=== PATIENT | female | born 1945 | race Caucasian/White ===

== ENCOUNTER 2016-12-05 12:45 | Observation (INO) ==
[2016-12-05] MEDS ORDERED: Aspirin 81 MG TAB.CHEW PO ONE (12:47)
--- NOTE | 2016-12-05 12:50 | Emergency Department Note ---
Disposition Clinical Impression: Chest pain Qualifiers: Chest pain type: unspecified Qualified Code(s): R07.9 - Chest pain, unspecified Disposition: Admitted As Inpatient Condition: Good Referrals: NO,PCP [Primary Care Provider] - Forms: Work/School Release, ED Satisfaction Letter Time of Disposition: 13:53 General Adult HPI - General Chief complaint: ED General Medical Stated complaint: something is wrong Time Seen by Provider: 12/05/16 12:47 Source: patient Mode of arrival: ambulatory Limitations: no limitations Nursing Notes Reviewed: Yes Vital Signs Reviewed: Yes - History of Present Illness HPI Narrative: 71-year-old who states she doesn't feel right. States she's been having intermittent chest pain for the last day or so. Onset (ago): day(s) Location: chest Radiation: non-radiation Pain Severity: moderate Quality: aching Consistency: constant Improves with: nothing Worsens with: nothing Treatments Prior to Arrival: none - Related Data Previous Rx's Medication Instructions Recorded Azithromycin [Azithromycin 6-Tab 250 mg PO PER PKG DI #6 tab 07/19/16 Pack] Allergies Allergy/AdvReac Type Severity Reaction Status Date / Time Penicillins Allergy See Verified 09/13/15 11:57 Comments Limitations: ROS unobtainable due to patients medical condition Constitutional: Denies: fever, chills, weakness, weight change Eyes: Denies: eye pain, eye discharge, vision change ENT ED: Denies: ear pain, throat pain, dental pain, hearing loss, epistaxis, congestion, dysphagia Cardiovascular: Reports: chest pain. Denies: palpitations, dyspnea on exertion , edema, syncope Respiratory: Denies: cough, dyspnea, wheezes, hemoptysis, stridor Gastrointestinal: Denies: abdominal pain, nausea, vomiting, diarrhea, constipation, hematemesis, melena, hematochezia Genitourinary: Denies: dysuria, frequency, hematuria, discharge Musculoskeletal: Denies: back pain, neck pain, arthralgia, myalgia Integumentary: Denies: rash, abrasion, lesions Neurological: Denies: headache, weakness, numbness, paresthesias, confusion, abnormal gait, vertigo Psychiatric: Denies: anxiety, depression, suicidal thoughts, homicidal thoughts , auditory hallucinations, visual hallucinations Endocrine: Denies: fatigue Hematological/Lymphatic: Denies: easy bleeding, easy bruising Allergic/Immunologic: Denies: facial swelling, urticaria Past Medical History - Past Medical History Medical history: Reports: no medical history Surgical history: Reports: appendectomy Psychiatric history: Reports: depression - Social History Smoking Status: Current every day smoker Smokeless Tobacco Status: No Alcohol use: Reports: none Drug use: Reports: none Physical Exam - General Limitations: no limitations - Head Head exam: atraumatic, normocephalic, normal inspection - Eye Eye exam: Present: normal appearance, PERRL, EOMI - ENT ENT exam: normal exam, normal oropharynx, mucous membranes moist - Neck Neck exam: Present: normal inspection, full ROM, trachea midline - Chest Chest inspection: Present: normal inspection, symmetric chest wall rise - Respiratory Respiratory exam: Present: normal lung sounds bilaterally - Cardiovascular Cardiovascular exam: Present: regular rate, normal rhythm, normal heart sounds - Abdominal Exam Abdominal exam: Present: soft, Non-Tender. Absent: tenderness, distention, guarding, rebound, rigidity - Extremities Exam Extremities exam: Present: normal inspection, full ROM. Absent: tenderness, pedal edema - Expanded Lower Extremity Exam Neurovascular/Tendon exam: Absent: motor deficit, sensory deficit, tendon deficit Gait: observed and normal - Back Exam Back exam: Present: normal inspection, full ROM. Absent: tenderness - Neurological Exam Neurological exam: Present: alert, oriented X3 - Psychiatric Psychiatric exam: Present: normal affect - Skin Skin exam: Present: warm, dry, intact, normal color Course - Reevaluation(s) Reevaluation #1: 71-year-old who states hasn't felt well for the last couple of days been having some intermittent chest pain today. Patient has had no recent workup. Will be admitted. Time: 13:55 - Consultations Consultation #1: Discussed with , admit. Time: 13:54 Vital Signs Temperature 98.7 F 12/05/16 12:46 Pulse Rate 71 12/05/16 12:46 Respiratory Rate 18 12/05/16 12:46 Blood Pressure 171/73 12/05/16 12:46 O2 Sat by Pulse Oximetry 71 12/05/16 12:46 Temperature 98.7 F 12/05/16 12:46 Pulse Rate 62 12/05/16 14:02 Respiratory Rate 18 12/05/16 14:02 Blood Pressure 138/82 12/05/16 14:02 O2 Sat by Pulse Oximetry 98 12/05/16 14:02 Oxygen Delivery Oxygen Delivery Room Air Medical Decision Making - Lab Data Lab results reviewed: Yes I reviewed the patient's lab results. Result diagrams: 12/05/16 13:09 12/05/16 13:09 Lab Results 12/05/16 12/05/16 12/05/16 Range/Units 13:09 13:09 13:09 WBC 5.5 (4.3-11.1) K/mcL RBC 4.50 (3.82-4.97) M/mcL Hgb 13.6 (11.5-15.4) g/dL Hct 41.3 (35.3-44.9) % MCV 91.8 (83.0-100.0) fL MCH 30.2 (28.0-33.3) pg MCHC 32.9 (31.6-35.5) g/dL RDW 14.1 (11.5-14.5) % Plt Count 263 (140-400) K/mcL MPV 10.0 (9.4-12.4) fL Immature Gran % 0.5 (0-4) % Seg Neutrophils % 63.1 % Lymphocytes % 25.2 % Monocytes % 7.9 % Eosinophils % 2.2 % Basophils % 1.1 % Neutrophils # 3.5 (1.6-8.9) K/mcL Lymphocytes # 1.4 (0.6-4.6) K/mcL Monocytes # 0.4 (0.0-1.3) K/mcL Eosinophils # 0.1 (0.0-0.6) K/mcL Basophils # 0.1 (0.0-0.2) K/mcL PT 11.4 (9.4-12.1) Seconds INR 1.1 APTT 28.8 (26.0-36.0) Seconds Sodium (136-145) mEq/L Potassium (3.5-4.5) mEq/L Chloride (98-109) mEq/L Carbon Dioxide (19-29) mEq/L BUN (7-20) mg/dL Creatinine (0.57-1.11) mg/dL Est GFR ( Amer) (> 60) Est GFR (Non-Af Amer) (> 60) BUN/Creatinine Ratio (6-26) Glucose (70-99) mg/dL Calculated Osmolality (280-300) Calcium (8.6-10.8) mg/dL Troponin I (0-0.03) ng/mL B-Natriuretic Peptide 111 H (0-100) pg/mL 12/05/16 12/05/16 Range/Units 13:09 13:09 WBC (4.3-11.1) K/mcL RBC (3.82-4.97) M/mcL Hgb (11.5-15.4) g/dL Hct (35.3-44.9) % MCV (83.0-100.0) fL MCH (28.0-33.3) pg MCHC (31.6-35.5) g/dL RDW (11.5-14.5) % Plt Count (140-400) K/mcL MPV (9.4-12.4) fL Immature Gran % (0-4) % Seg Neutrophils % % Lymphocytes % % Monocytes % % Eosinophils % % Basophils % % Neutrophils # (1.6-8.9) K/mcL Lymphocytes # (0.6-4.6) K/mcL Monocytes # (0.0-1.3) K/mcL Eosinophils # (0.0-0.6) K/mcL Basophils # (0.0-0.2) K/mcL PT (9.4-12.1) Seconds INR APTT (26.0-36.0) Seconds Sodium 140 (136-145) mEq/L Potassium 3.9 (3.5-4.5) mEq/L Chloride 109 (98-109) mEq/L Carbon Dioxide 21 (19-29) mEq/L BUN 18 (7-20) mg/dL Creatinine 0.79 (0.57-1.11) mg/dL Est GFR ( Amer) > 60 (> 60) Est GFR (Non-Af Amer) > 60 (> 60) BUN/Creatinine Ratio 23 (6-26) Glucose 93 (70-99) mg/dL Calculated Osmolality 292 (280-300) Calcium 8.9 (8.6-10.8) mg/dL Troponin I 0.00 (0-0.03) ng/mL B-Natriuretic Peptide (0-100) pg/mL - Radiology Data Radiology results reviewed: Yes I reviewed the patient's radiology results. Chest X-Ray 12/05/16 12:47 IMPRESSION: Stable portable study. D/ / Nellie Jiménez Cha, MD / Nellie Jiménez Cha, MD Interpreting Provider: Nellie Jiménez Cha, MD
[2016-12-05 13:18] LABS: Basophils # 0.1 K/mcL (0.0-0.2); Basophils % 1.1 %; Eosinophils # 0.1 K/mcL (0.0-0.6); Eosinophils % 2.2 %; Hematocrit 41.3 % (35.3-44.9); Hemoglobin 13.6 g/dL (11.5-15.4); Immature Granulocytes % 0.5 % (0-4); Lymphocytes # 1.4 K/mcL (0.6-4.6); Lymphocytes % 25.2 %; Mean Corpuscular HGB Conc 32.9 g/dL (31.6-35.5); Mean Corpuscular Hemoglobin 30.2 pg (28.0-33.3); Mean Corpuscular Volume 91.8 fL (83.0-100.0); Monocytes # 0.4 K/mcL (0.0-1.3); Monocytes % 7.9 %; Neutrophils # 3.5 K/mcL (1.6-8.9); Platelet Count 263 K/mcL (140-400); Red Cell Distribution Width 14.1 % (11.5-14.5); Segmented Neutrophils % 63.1 %
[2016-12-05 13:25] LABS: INR 1.1; Prothrombin Time 11.4 Seconds (9.4-12.1)
[2016-12-05 13:28] LABS: Activated Partial Thrombo Time 28.8 Seconds (26.0-36.0)
[2016-12-05 13:31] LABS: BUN/Creatinine Ratio 23 (6-26); Blood Urea Nitrogen 18 mg/dL (7-20); Calcium 8.9 mg/dL (8.6-10.8); Carbon Dioxide 21 mEq/L (19-29); Chloride 109 mEq/L (98-109); Glucose 93 mg/dL (70-99); Osmolality,Calculated 292 (280-300); Potassium 3.9 mEq/L (3.5-4.5); Sodium 140 mEq/L (136-145); eGFR For African Americans > 60 (> 60); eGFR For Non-African Americans > 60 (> 60)
[2016-12-05] MEDS ORDERED: Naloxone 0.4 MG/ML INJ IVP PRN (15:10)
[2016-12-05] MEDS ORDERED: Acetaminophen 325 MG TABLET PO PRN (15:10)
[2016-12-05] MEDS ORDERED: Ondansetron 4 MG/2 ML VIAL IVP PRN (15:10)
[2016-12-05] MEDS ORDERED: *HR* HYDROcodone/Acet 5/325 mg TABLET PO PRN (15:10)
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
[2016-12-05] MEDS: Nitroglycerin 0.4 MG TAB.SUBL SL PRN ×2 (16:24→20:58)
[2016-12-06 01:15] LABS: Basophils % 0.7 %; Eosinophils # 0.2 K/mcL (0.0-0.6); Eosinophils % 3.3 %; Hematocrit 38.3 % (35.3-44.9); Hemoglobin 12.4 g/dL (11.5-15.4); Immature Granulocytes % 0.3 % (0-4); Lymphocytes # 1.5 K/mcL (0.6-4.6); Lymphocytes % 26.7 %; Mean Corpuscular HGB Conc 32.4 g/dL (31.6-35.5); Mean Corpuscular Volume 92.5 fL (83.0-100.0); Mean Platelet Volume 10.2 fL (9.4-12.4); Monocytes # 0.5 K/mcL (0.0-1.3); Monocytes % 8.7 %; Neutrophils # 3.5 K/mcL (1.6-8.9); Platelet Count 248 K/mcL (140-400); Red Blood Count 4.14 M/mcL (3.82-4.97); Red Cell Distribution Width 14.1 % (11.5-14.5); Segmented Neutrophils % 60.3 %
[2016-12-06 01:24] LABS: BUN/Creatinine Ratio 14 (6-26); Blood Urea Nitrogen 14 mg/dL (7-20); Calcium 8.6 mg/dL (8.6-10.8); Carbon Dioxide 23 mEq/L (19-29); Chloride 110 mEq/L (98-109); Chol/HDL Ratio 4.6 (0-4.9); Cholesterol 221 mg/dL (< 200); Glucose 96 mg/dL (70-99); HDL Cholesterol 48 mg/dL (40-59); LDL Cholesterol,Calculated 140 mg/dL (0-99); Magnesium 2.2 mg/dL (1.6-2.6); Osmolality,Calculated 292 (280-300); Potassium 3.7 mEq/L (3.5-4.5); Sodium 141 mEq/L (136-145); Triglycerides 163 mg/dL (< 150); eGFR For African Americans > 60 (> 60); eGFR For Non-African Americans 53 (> 60)
[2016-12-06] MEDS ORDERED: Regadenoson 0.4 MG/5 ML SYRINGE IVP ONE (07:03)
[2016-12-06] MEDS ORDERED: Aspirin 81 MG TAB.CHEW PO SCH (09:00)
--- NOTE | 2016-12-06 11:39 | Nuclear Medicine Stress Report ---
Regadenoson Nuclear Stress Name: Trina Alas Date of Study: 12/06/2016 Date: 1945 Ht: 64.0 in Medical Record#: [id number] Age: 71 Wt: 136.0 lb Gender: Female Order #: [id number] Location: [facility] Room: [facility] Supervising Provider: Benitez Cade CNP Reading Physician: Lenny Rosenbaum MD, [facility] Ordering Physician: Leslie Smiley CNP Stress Technologist: Jamie Brunson KNITTING MACHINE TENDER, [employer] County Commissioner: Nathan Alas Indications: Chest Pain Impression: Perfusion imaging was negative for ischemia or infarct. Pharmacologic ECG was non diagnostic for ischemia. Patient had no chest pain with stress. Normal hemodynamic response. No arrhythmias noted with stress. Gated EF = >70%. There is no evidence of TID. Stress Test Summary: Stress Test Type: Pharmacologic Regadenoson 0.4mg/5ml given IV Baseline Information: Initial Heart Rate: 65 Blood Pressure: 116/74 Stress Information: Stress Time: 4 min 00 sec Test Terminated Due to (primary): Completed Protocol Maximum Blood Pressure: 114/76 Maximum Heart Rate: 86 Percent Maximum Heart Rate Achieved: 58 Double Product: 9,804 METS Reached: 1 Symptoms: Shortness of breath, Nausea Nuclear Summary: SPECT myocardial perfusion imaging using Tc99m Sestamibi given intravenously was performed at rest and following cardiac stress testing. The resting images were obtained following initial dose of 11.6 mCi. Following stress an additional dose of 33.2 mCi was given at peak exercise or 30 seconds post regadenoson infusion. Medication Given: Time Medication Dose Units Route Findings: Stress Note * Resting ECG demonstrated normal sinus rhythm. * No baseline arrhythmias were noted. * Pharmacologic stress ECG is non diagnostic for ischemia due to failure to reach target heartrate. * No arrhythmias were noted during stress. * No chest pain or arrhythmias during stress. Hemodynamic responses * Normal hemodynamic responses to pharmacologic stress. Study Quality * Study quality is average. Gated EF > 70% * Gated EF > 70%. NORMALS * Normal wall motion. * Normal Segmental Perfusion in rest. * Normal segmental perfusion in stress. TID * No evidence of transient ischemic dilatation. Updated by Lenny Rosenbaum MD, [facility] on 12/06/2016 11:31:23 AM electronically signed on 12/06/2016 11:36:19 AM with status of Final
[2016-12-06] MEDS: Nitroglycerin 0.4 MG TAB.SUBL SL PRN (11:52)
--- NOTE | 2016-12-06 14:08 | ECHO - Doppler Report ---
Echocardiogram Name: Trina Alas Date of Study: 12/06/2016 Date: 1945 Ht: 61.0 in Medical Record#: [id number] Age: 71 Wt: 136.0 lb Gender: Female BSA: 1.6 Order #: [id number] Location: [facility] Room #: 3B Reading Physician: Lenny Rosenbaum MD, [facility] Rn Perioperative: Lonny Macias RDCS Ordering Physician: Regina Sprague CNP Primary Physician: None Indications: Chest pain Impressions: LVEF 55-60%. Mild left ventricular diastolic dysfunction. No pulmonary hypertension. No significant valvular dysfunction. Left Ventricular Wall Motion: Rest Echo Findings All wall segments showed normal motion. Findings: Study Quality * Technically adequate exam. Right Ventricle * Normal right ventricular structure and function. Left Atrium * Normal left atrial size. Right Atrium * Normal right atrial size. Interatrial Septum * No evidence of PFO by color Doppler. Aorta * Normally sized aortic root. ECG Findings * Sinus bradycardia. Pericardium * There is a trivial pericardial effusion present. Left Ventricle * LVEF 55-60%. * Mild left ventricular diastolic dysfunction. Tricuspid Valve * No tricuspid stenosis. * Mild tricuspid regurgitation. * Estimated RA pressure is 3-5 mmHg. * No pulmonary hypertension. * Estimated RVSP is 19 mmHg. Pulmonic Valve * No pulmonic stenosis. * Mild pulmonic regurgitation. Aortic Valve * Normal aortic valve structure. * Trileaflet aortic valve. * Trace aortic regurgitation. * No aortic stenosis. Mitral Valve * Normal mitral valve structure. * No mitral stenosis. * Trace mitral regurgitation. IVC * Normal IVC dimensions and inspiratory collapse. History Family History of CAD 09/13/15 a Previous Echo was performed. Measurements: BP: 118/ 69 2D Normal Values RVIDd: 2.86 cm <2.7 cm IVSd: .94 cm 0.6 - 1.0 cm LVIDd: 4.74 cm 3.7 - 5.6 cm LVPWd: .91 cm 0.6 - 1.1 cm LVIDs: 2.98 cm 1.5 - 3.6 cm AO: 2.50 cm < 4.0 cm LA: 3.70 cm 2.0 - 4.0cm LA volume: 49 Mitral Valve Peak E:.57 m/sec Peak A:.67 m/sec E/A Ratio:0.9 Peak E' Lat Toño:6.09 cm/s Peak E' Med Toño:6.96 cm/s E/E' Lat Ratio:9.4 E/E' Med Ratio:8.2 Aortic Valve AI pressure Half-time: 904.00 msec Tricuspid Valve TV Regurg Peak Grad: 19.00mmHg Updated by Lenny Rosenbaum MD, [facility] on 12/06/2016 1:57:41 PM electronically signed on 12/06/2016 2:02:08 PM with status of Final Wall Motion Otto: 1=Normal, 2=Hypokinesis, 3=Akinesis, 4=Dyskinesis, 5=Aneurysmal, 6=Hyperkinetic, X=Not Visualized (Blank)=Missing
[2016-12-06 14:41] VITALS: BP 116/77
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
--- NOTE | 2016-12-06 20:27 | Electrocardiograph Report ---
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
== END 2016-12-06 16:40 | disposition home or self-care (01) ==
LOC: EMEROO 12:45 → 3BNU 12:45
PROVIDERS: ADMIT Nurse Practitioner Acute Care; ATTEND Nurse Practitioner Family

== ENCOUNTER 2018-02-28 16:54 | Observation (INO) ==
--- NOTE | 2018-02-28 17:20 | Emergency Department Note ---
Disposition Clinical Impression: Abdominal pain Disposition: Still a Patient Condition: Fair Referrals: NONE,PCP [Primary Care Provider] - Forms: ED Satisfaction Letter, Work/School Release Abdominal Pain HPI - General Chief Complaint: ED Abdominal Pain Stated Complaint: pain all over Time Seen by Provider: 02/28/18 16:57 Source: patient, EMS Mode of arrival: EMS Limitations: no limitations Nursing Notes Reviewed: Yes Vital Signs Reviewed: Yes - History of Present Illness HPI Narrative: Patient is a 72-year-old female with past medical history of "abdominal tumors ", MRDD. She is a poor historian. She presents today via EMS due to concern for "pain from neck down. She states that she has been having sharp stabbing pain in all of her muscles from neck down. Denies any overt chest pain but does admit to some mild dyspnea. Denies any fevers, productive cough. She also admits to lower abdominal discomfort. She states that she was diagnosed with tumors of the lower abdomen before but is unable to give me any additional details. She states that she is having worsening lower abdominal discomfort. Denies any dysuria, hematuria, blood in stool. Denies any vaginal bleeding or discharge. States that she is currently homeless. Her is in [place] currently and she has been living in a tent for the past week in the [facility]. She does not have any local family. Pain Scale: 8 - Related Data Home Medications Medication Instructions Recorded Confirmed Citalopram [CeleXA] 20 mg PO DAILY 12/05/16 12/05/16 Ibuprofen [Motrin] 600 mg PO TID PRN 12/05/16 12/05/16 Allergies Allergy/AdvReac Type Severity Reaction Status Date / Time Penicillins Allergy See Verified 02/28/18 17:19 Comments All systems ED: reviewed and negative except as stated. Constitutional: Denies: fever Cardiovascular: Denies: chest pain, palpitations Respiratory: Reports: dyspnea. Denies: cough, wheezes, hemoptysis, sputum production Gastrointestinal: Reports: abdominal pain, nausea. Denies: vomiting, diarrhea, constipation, hematemesis, melena, hematochezia Musculoskeletal: Denies: back pain Neurological: Denies: headache, weakness, numbness, paresthesias Abdominal Pain PMH - Past Medical History Medical history: Reports: no medical history Female Surgical History: Reports: appendectomy, herniorrhaphy Psychiatric history: Reports: depression - Social History Smoking status: Current some day smoker Alcohol use: Reports: none Drug use: Reports: none Physical Exam - General Limitations: no limitations General appearance: alert, in no apparent distress - Head Head exam: atraumatic, normocephalic, normal inspection - Eye Eye exam: Present: normal appearance, PERRL, EOMI - ENT ENT exam: normal exam, normal oropharynx, mucous membranes moist - Neck Neck exam: Present: normal inspection, full ROM, trachea midline - Chest Chest inspection: Present: normal inspection, symmetric chest wall rise - Respiratory Respiratory exam: Present: normal lung sounds bilaterally - Cardiovascular Cardiovascular exam: Present: regular rate, normal rhythm, normal heart sounds - Abdominal Exam Abdominal exam: Present: soft, tenderness ([id number] suprapubic tenderness). Absent: distention, guarding, rebound, rigidity, Suarez's sign, Rovsing's sign, tenderness at McBurney's Point - Extremities Exam Extremities exam: Present: normal inspection, full ROM. Absent: tenderness, pedal edema - Neurological Exam Neurological exam: Present: alert, oriented X3, CN II-XII intact. Absent: motor sensory deficit - Psychiatric Psychiatric exam: Present: normal affect, normal mood - Skin Skin exam: Present: warm, dry, intact, normal color Course Course Narrative: Vitals within normal limits on my exam. Physical exam shows a disheveled patient in no acute distress. Lungs were clear to auscultation, heart regular rate and rhythm. Abdominal exam shows suprapubic tenderness that is mild-to- moderate. Negative Suarez's, negative McBurney's. Due to history of "tumors "of the abdomen and increasing pain, will obtain repeat CT of the abdomen and pelvis. Also obtain chest x-ray due to dyspnea. Basic blood work drawn including troponin, we will obtain EKG. Patient given fentanyl for pain control. Social work also involved. Vital Signs Temperature 99.0 F 02/28/18 17:13 Pulse Rate 71 02/28/18 17:13 Respiratory Rate 16 02/28/18 17:13 Blood Pressure 106/74 02/28/18 17:13 O2 Sat by Pulse Oximetry 99 02/28/18 17:13 Temperature 99.0 F 02/28/18 17:13 Pulse Rate 71 02/28/18 17:13 Respiratory Rate 16 02/28/18 17:13 Blood Pressure 106/74 02/28/18 17:13 O2 Sat by Pulse Oximetry 99 02/28/18 17:13 Oxygen Delivery Oxygen Delivery Room Air Abdominal Pain - MDM Narrative Medical decision making narrative: Chest X-Ray 02/28/18 17:19 IMPRESSION: No acute process. D/ / Zachery Santiago MD / Zachery Santiago MD Interpreting Provider: Zachery Santiago MD 1843 hours: Patient will be signed out to the evening ER physician Dr. Oliver for further management disposition. - Medical Records Medical records reviewed: Yes I reviewed the patient's medical records. - Lab Data Lab results reviewed: Yes I reviewed the patient's lab results. Result diagrams: 02/28/18 17:32 Lab Results 02/28/18 02/28/18 Range/Units 17:32 18:00 WBC 4.1 L (4.3-11.1) K/mcL RBC 4.36 (3.82-4.97) M/mcL Hgb 13.4 (11.5-15.4) g/dL Hct 39.6 (35.3-44.9) % MCV 90.8 (83.0-100.0) fL MCH 30.7 (28.0-33.3) pg MCHC 33.8 (31.6-35.5) g/dL RDW 13.9 (11.5-14.5) % Plt Count 273 (140-400) K/mcL MPV 10.6 (9.4-12.4) fL Immature Gran % 0.2 (0-4) % Seg Neutrophils % 54.5 % Lymphocytes % 34.5 % Monocytes % 7.7 % Eosinophils % 2.4 % Basophils % 0.7 % Neutrophils # 2.3 (1.6-8.9) K/mcL Lymphocytes # 1.4 (0.6-4.6) K/mcL Monocytes # 0.3 (0.0-1.3) K/mcL Eosinophils # 0.1 (0.0-0.6) K/mcL Basophils # 0.0 (0.0-0.2) K/mcL Urine Color Yellow (Yellow) Urine Clarity Cloudy A (Clear) Urine pH 7.5 (5.0-8.0) pH Units Ur Specific [place] 1.016 (1.010-1.025) Urine Protein Negative (Neg-Trace) mg/dL Urine Glucose (UA) Normal (Normal) mg/dL Urine Ketones Negative (Negative) mg/dL Urine Blood Negative (Negative) Urine Nitrite Negative (Negative) Urine Bilirubin Negative (Negative) Urine Urobilinogen Normal (Normal) mg/dL Ur Leukocyte Esterase Small H (Negative) - EKG Data EKG attestation: Yes I reviewed and interpreted this EKG. EKG results narrative: 02/28/2018 18:12. Normal sinus rhythm. Rate 53. AR 156. QRS 83. QTC 423. Normal axis. No acute ST elevation or depression. T-wave inversion in V1, V2 that is unchanged from previous EKG on 11/01/2017. Attestation Statement - Attestation Attestation: This documentation is done with the assistance of Dragon dictation. Despite efforts made to ensure accuracy, there may be inaccuracies in hvac sheet metal installer or spelling and typographical errors. I examined this patient and my medical decision-making was reviewed with the Resident Physician. I agree with the documented findings, disposition and treatment plan as described except to the extent set forth below. Patient seen and evaluated by Dr. Allison and myself, I agree with his evaluation and management plan, supervise care the patient's stay. Patient resists today with pain all over she says she has a history of multiple abdominal tumors but she is a very poor historian and cannot provide much information. She says she is homeless she has been sleeping in a tent she has pain all over. Do not seen any direct abnormalities on physical exam Anshu and blood work CT the abdomen and urinalysis and reassess. We will also health and social care teacher be involved in this case. She is in agreement with plan.
[2018-02-28] MEDS ORDERED: *HR* FentaNYL (PF) 100 MCG/2 ML VIAL IVP ONE (17:33)
[2018-02-28 18:19] LABS: Bilirubin,Urine Negative (Negative); Blood,Urine Negative (Negative); Clarity,Urine Cloudy (Clear); Color,Urine Yellow (Yellow); Glucose,Urine (UA) Normal (Normal); Ketones,Urine Negative (Negative); Leukocyte Esterase,Urine Small (Negative); Nitrite,Urine Negative (Negative); PH,Urine 7.5 pH Units (5.0-8.0); Protein,Urine Negative (Neg-Trace); Specific Gravity,Urine 1.016 (1.010-1.025); Urobilinogen,Urine Normal (Normal)
[2018-02-28 18:22] LABS: Bacteria,Urine None Seen per hpf (None-Few); Hyaline Casts,Urine None Seen per lpf (None-Few); Squamous Epithelial Cell,Urine Many per lpf (None-Few)
[2018-02-28 18:22] LABS: Basophils % 0.7 %; Eosinophils # 0.1 K/mcL (0.0-0.6); Eosinophils % 2.4 %; Hematocrit 39.6 % (35.3-44.9); Hemoglobin 13.4 g/dL (11.5-15.4); Immature Granulocytes % 0.2 % (0-4); Lymphocytes # 1.4 K/mcL (0.6-4.6); Lymphocytes % 34.5 %; Mean Corpuscular HGB Conc 33.8 g/dL (31.6-35.5); Mean Corpuscular Hemoglobin 30.7 pg (28.0-33.3); Mean Corpuscular Volume 90.8 fL (83.0-100.0); Mean Platelet Volume 10.6 fL (9.4-12.4); Monocytes # 0.3 K/mcL (0.0-1.3); Monocytes % 7.7 %; Neutrophils # 2.3 K/mcL (1.6-8.9); Platelet Count 273 K/mcL (140-400); Red Blood Count 4.36 M/mcL (3.82-4.97); Red Cell Distribution Width 13.9 % (11.5-14.5); Segmented Neutrophils % 54.5 %
[2018-02-28 18:44] LABS: RBC,Urine 0-3 per hpf (0-3)
[2018-02-28 18:44] LABS: Alanine Aminotransferase 9 Units/L (7-52); Albumin 3.9 g/dL (3.5-5.7); Albumin/Globulin Ratio 1.8 (1.1-2.2); Alkaline Phosphatase 94 Units/L (34-104); Aspartate Amino Transferase 13 Units/L (13-39); BUN/Creatinine Ratio 24 (6-26); Bilirubin,Direct 0.1 mg/dL (0.0-0.2); Bilirubin,Indirect 0.7 mg/dL (0.0-1.2); Bilirubin,Total 0.8 mg/dL (0.3-1.0); Blood Urea Nitrogen 18 mg/dL (8-23); Calcium 9.4 mg/dL (8.6-10.3); Carbon Dioxide 21 mEq/L (23-29); Chloride 109 mEq/L (98-107); Creatine Kinase 106 Units/L (30-223); Globulin 2.2 g/dL (2.4-3.5); Glucose 123 mg/dL (70-105); Lipase 27 Units/L (11-82); Osmolality,Calculated 297 (280-300); Potassium 3.3 mEq/L (3.5-5.1); Sodium 142 mEq/L (136-145); Total Protein 6.1 g/dL (6.4-8.9); eGFR For Non-African Americans > 60 (> 60)
[2018-02-28] MEDS ORDERED: Potassium Chloride Elixir 20 MEQ/15 ML UDC PO ONE (21:35)
--- NOTE | 2018-02-28 21:37 | Emergency Department Note ---
Disposition Clinical Impression: Homeless Abdominal pain Qualifiers: Abdominal location: generalized Qualified Code(s): R10.84 - Generalized abdominal pain Disposition: Admitted As Inpatient Condition: Fair Referrals: NONE,PCP [Primary Care Provider] - Forms: ED Satisfaction Letter, Work/School Release Time of Disposition: 21:45 General Adult HPI - General Chief complaint: ED Abdominal Pain Stated complaint: pain all over Time Seen by Provider: 02/28/18 16:57 Source: patient, EMS Mode of arrival: EMS Limitations: no limitations Nursing Notes Reviewed: Yes Vital Signs Reviewed: Yes - History of Present Illness Pain Scale: 8 - Related Data Home Medications Medication Instructions Recorded Confirmed Citalopram [CeleXA] 20 mg PO DAILY 12/05/16 12/05/16 Ibuprofen [Motrin] 600 mg PO TID PRN 12/05/16 12/05/16 Allergies Allergy/AdvReac Type Severity Reaction Status Date / Time Penicillins Allergy See Verified 02/28/18 17:19 Comments Constitutional: Denies: fever Cardiovascular: Denies: chest pain, palpitations Respiratory: Reports: dyspnea. Denies: cough, wheezes, hemoptysis, sputum production Gastrointestinal: Reports: abdominal pain, nausea. Denies: vomiting, diarrhea, constipation, hematemesis, melena, hematochezia Musculoskeletal: Denies: back pain Neurological: Denies: headache, weakness, numbness, paresthesias Past Medical History - Past Medical History Medical history: Reports: no medical history Surgical history: Reports: appendectomy, herniorrhaphy Psychiatric history: Reports: depression - Social History Smoking Status: Current some day smoker Smokeless Tobacco Status: No Alcohol use: Reports: none Drug use: Reports: none Physical Exam - General Limitations: no limitations General appearance: alert, in no apparent distress Course - Reevaluation(s) Reevaluation #1: Received patient in signout from Dr. Vences. Briefly, this is a 72 year-old female with history of MRDD who presented with multiple complaints, including "pain all over." Mild abdominal tenderness. Patient is homeless. At the time of signout, labs/urine were looking good; CT abdomen and SW consult consult pending. CT abdomen was negative. Patient was evaluated by medical social worker. She is likely eligible for NH placement tomorrow, would need to come in for observation until then. Discussed case with hospitalist, and he has agreed to bring patient in. Time: 21:36 Vital Signs Temperature 99.0 F 02/28/18 17:13 Pulse Rate 71 02/28/18 17:13 Respiratory Rate 16 02/28/18 17:13 Blood Pressure 106/74 02/28/18 17:13 O2 Sat by Pulse Oximetry 99 02/28/18 17:13 Temperature 99.0 F 02/28/18 17:13 Pulse Rate 60 02/28/18 21:04 Respiratory Rate 16 02/28/18 21:04 Blood Pressure 140/54 02/28/18 21:04 O2 Sat by Pulse Oximetry 99 02/28/18 21:04 Oxygen Delivery Oxygen Delivery Room Air Medical Decision Making - Lab Data Result diagrams: 02/28/18 17:32 02/28/18 17:32 Lab Results 02/28/18 02/28/18 02/28/18 Range/Units 17:32 17:32 18:00 WBC 4.1 L (4.3-11.1) K/mcL RBC 4.36 (3.82-4.97) M/mcL Hgb 13.4 (11.5-15.4) g/dL Hct 39.6 (35.3-44.9) % MCV 90.8 (83.0-100.0) fL MCH 30.7 (28.0-33.3) pg MCHC 33.8 (31.6-35.5) g/dL RDW 13.9 (11.5-14.5) % Plt Count 273 (140-400) K/mcL MPV 10.6 (9.4-12.4) fL Immature Gran % 0.2 (0-4) % Seg Neutrophils % 54.5 % Lymphocytes % 34.5 % Monocytes % 7.7 % Eosinophils % 2.4 % Basophils % 0.7 % Neutrophils # 2.3 (1.6-8.9) K/mcL Lymphocytes # 1.4 (0.6-4.6) K/mcL Monocytes # 0.3 (0.0-1.3) K/mcL Eosinophils # 0.1 (0.0-0.6) K/mcL Basophils # 0.0 (0.0-0.2) K/mcL Sodium 142 (136-145) mEq/L Potassium 3.3 L (3.5-5.1) mEq/L Chloride 109 H (98-107) mEq/L Carbon Dioxide 21 L (23-29) mEq/L BUN 18 (8-23) mg/dL Creatinine 0.75 (0.60-1.20) mg/dL Est GFR ( Amer) > 60 (> 60) Est GFR (Non-Af Amer) > 60 (> 60) BUN/Creatinine Ratio 24 (6-26) Glucose 123 H (70-105) mg/dL Calculated Osmolality 297 (280-300) Calcium 9.4 (8.6-10.3) mg/dL Total Bilirubin 0.8 (0.3-1.0) mg/dL Direct Bilirubin 0.1 (0.0-0.2) mg/dL Indirect Bilirubin 0.7 (0.0-1.2) mg/dL AST 13 (13-39) Units/L ALT 9 (7-52) Units/L Alkaline Phosphatase 94 (34-104) Units/L Creatine Kinase 106 (30-223) Units/L Serum Total Protein 6.1 L (6.4-8.9) g/dL Albumin 3.9 (3.5-5.7) g/dL Globulin 2.2 L (2.4-3.5) g/dL Albumin/Globulin Ratio 1.8 (1.1-2.2) Lipase 27 (11-82) Units/L Urine Color Yellow (Yellow) Urine Clarity Cloudy A (Clear) Urine pH 7.5 (5.0-8.0) pH Units Ur Specific [place] 1.016 (1.010-1.025) Urine Protein Negative (Neg-Trace) mg/dL Urine Glucose (UA) Normal (Normal) mg/dL Urine Ketones Negative (Negative) mg/dL Urine Blood Negative (Negative) Urine Nitrite Negative (Negative) Urine Bilirubin Negative (Negative) Urine Urobilinogen Normal (Normal) mg/dL Ur Leukocyte Esterase Small H (Negative) Urine Microscopic RBC 0-3 (0-3) per hpf Urine Microscopic WBC 5-15 H (0-3) per hpf Ur Squamous Epith Cells Many H (None-Few) per lpf Urine Bacteria None Seen (None-Few) per hpf Hyaline Casts None Seen (None-Few) per lpf Ur Culture Indicated? NO. A (NO)
[2018-02-28] MEDS ORDERED: Naloxone 0.4 MG/ML INJ IVP PRN (23:52)
--- NOTE | 2018-03-01 00:13 | Internal Med History&Physical ---
Date of Encounter: 03/01/18 Time of Encounter: 23:20 Internal Medicine - H&P: HPI Chief complaint: Weakness, UTI Admitted From: Home Plans for Post Hospital Care: Home History of present illness: Ms. 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 Her pain causes her to have a hard time talking and walking, but pushing on the top of her head makes the pain stop. She denied pain with eating, she has never had symptoms like this before , describes the pain as needle pricks all over her skin. Sometimes she feels like her legs will give out from underneath her. She also states that she has had a 2 day history of burning with urination, with associated abdominal pain. Patient denies chest pain, shortness of breath, nausea, vomiting, diarrhea, constipation. She is currently homeless, recently evicted from her apartment and lives in a tent in the [facility]. Her is in the hospital up in [place] as well. She denies alcohol and other drug use though does say she smokes about half a pack of cigarettes a day. Emergency room CBC and BMP were within normal limits. Urinalysis came back positive for small leukocyte esterase but negative for nitrites. An abdominal and pelvic CT showed no acute findings but a punctate nonobstructing stone was seen in the mid region of the left kidney as well as stable fibroid uterus. Chest x-ray revealed no acute abnormalities. Upon my assessment she states that she is feeling better though she would like something to eat. Past Med Surg Social Fam HX - Past Medical History Medical history: no medical history Psychiatric history: depression - Past Surgical History Surgical History: appendectomy, herniorrhaphy Additional surgical history: hernia surgery - Social History Smoking Status: Current some day smoker Smokeless Tobacco Status: No Alcohol use: none Drug use: none - Family History Brother Hx Family Cardiac Disorders: Yes Mother Living Status: Internal Medicine - H&P: Meds No Known Home Drugs 02/28/18 [History] 3 Allergy/AdvReac Type Severity Reaction Status Date / Time Penicillins Allergy See Verified 02/28/18 17:19 Comments All Systems PM: A 10-system review of systems was performed and is negative for pertinent findings except as documented above in the HPI. - Constitutional Vitals: Temp Pulse Resp BP Pulse Ox 98.0 F 55 16 136/67 100 02/28/18 22:38 02/28/18 22:38 02/28/18 22:38 02/28/18 22:38 02/28/18 22:38 General appearance: Present: cooperative, disheveled, A&O X 3, pleasant, no acute distress, answers questions appropriately Exam: Patient appears disheveled with obvious dirt under her fingernails and on skin. - Head Head exam: Present: normal inspection - Eye Eye exam: Present: EOMI, normal appearance - Respiratory Respiratory exam: Present: CTAB. Absent: chest wall tenderness, decreased breath sounds, wheezes - Cardiovascular Cardiovascular exam: Present: RRR. Absent: diastolic murmur, systolic murmur - GI/Abdominal GI/Abdominal exam: Present: normal bowel sounds, soft, tenderness Additional comments: Tenderness suprapubic, and mild tenderness diffusely in the abdomen with palpation. - Extremities Exam Extremities exam: Present: warm, radial pulses palpable and symmetrical. Absent : calf tenderness, tenderness - Neurological Exam Neurological exam: Present: no focal deficits, strengths equal and symetr throughout. Absent: motor sensory deficit, facial droop, speech deficit - Expanded Neurological Exam Neuro motor strength exam: LUE: 4, RUE: 4, LLE: 4, RLE: 4 - Skin Skin exam: Present: normal color, warm Internal Med - H&P Results - Labs CBC & Chem 7: 02/28/18 17:32 02/28/18 17:32 - Assessment and plan (1) Urinary tract infection Current Visit: Yes Status: Acute Assessment and plan: Patient's UA was positive for leukocyte esterase but negative for blood and nitrites. There are many squamous cells seen as well. Patient does have burning with urination however, therefore we will treat. Follow-up urine culture results Ceftriaxone 1 g daily Continue to monitor for possible signs of worsening infection Qualifiers: Qualified Code(s): N39.0 - Urinary tract infection, site not specified (2) Dysuria Current Visit: Yes Status: Acute Assessment and plan: Secondary to above (3) Generalized pain Current Visit: Yes Status: Acute Assessment and plan: Unclear etiology. Patient describes needlelike sensations all over her body. Workup in the emergency room negative. Patient denies drug use, but will order drug tox screen. Patient denies falls or injuries. She has been sleeping in a tent in the [facility] for several weeks now, which could be contributing to her pain. Continue to monitor Urinary tox screen ordered Consider neurology or psych consult if not improving (4) Weakness Current Visit: Yes Status: Acute Assessment and plan: Patient had 4 out of 5 strength on physical exam. No focal deficits, strength symmetrical bilaterally. We will have physical therapy and occupational therapy assess patient in the morning. PT and OT consult (5) Abdominal pain Current Visit: Yes Status: Acute Assessment and plan: Could be secondary to UTI or cystitis. Treatment as above Qualifiers: Abdominal location: generalized Qualified Code(s): R10.84 - Generalized abdominal pain (6) Homeless Current Visit: Yes Status: Acute Assessment and plan: Patient currently lives in a tent in the [facility]. Her is away in the hospital in another city. She has been homeless for a few weeks now since being evicted from her apartment. She is on disability, does not work. Social work consult (7) Tobacco abuse Current Visit: No Status: Resolved Assessment and plan: Smokes one half pack of cigarettes daily. Declined nicotine patch. (8) DVT prophylaxis Current Visit: No Status: Acute Assessment and plan: SCDs - Time Spent With Patient Total time spent is greater than 50% in coordination of care (as documented) at patient's floor/unit and/or counseling patient: Greater than 35 minutes
[2018-03-01] MEDS: cefTRIAXone 1,000 MG in Water for inj. (sterile) 20 ML 10 ML IVP SCH (00:20)
[2018-03-01 01:06] LABS: Amphetamine Screen,Urine Negative ng/mL (Cutoff=1000); Barbiturate Screen,Urine Negative ng/mL (Cutoff=200); Benzodiazepines Screen,Urine Negative ng/mL (Cutoff=200); Cannabinoid Screen,Urine Negative ng/mL (Cutoff = 50); Cocaine Screen,Urine Negative ng/mL (Cutoff= 300); Opiate Screen,Urine Negative ng/mL (Cutoff=300); Phencyclidine Screen,Urine Negative ng/mL (Cutoff=25)
[2018-03-01 03:49] LABS: Hematocrit 39.1 % (35.3-44.9); Hemoglobin 13.1 g/dL (11.5-15.4); Mean Corpuscular HGB Conc 33.5 g/dL (31.6-35.5); Mean Corpuscular Volume 92.7 fL (83.0-100.0); Mean Platelet Volume 10.5 fL (9.4-12.4); Platelet Count 250 K/mcL (140-400); Red Blood Count 4.22 M/mcL (3.82-4.97); Red Cell Distribution Width 14.1 % (11.5-14.5)
[2018-03-01 04:05] LABS: BUN/Creatinine Ratio 18 (6-26); Blood Urea Nitrogen 15 mg/dL (8-23); Calcium 8.9 mg/dL (8.6-10.3); Carbon Dioxide 23 mEq/L (23-29); Chloride 110 mEq/L (98-107); Glucose 108 mg/dL (70-105); Osmolality,Calculated 293 (280-300); Potassium 3.7 mEq/L (3.5-5.1); Sodium 141 mEq/L (136-145); eGFR For Non-African Americans > 60 (> 60)
--- NOTE | 2018-03-01 16:32 | Internal Med Progress Note ---
Hospitalist Progress Note - Encounter Date of Encounter: 03/01/18 Time of Encounter: 08:55 - Subjective Interval History: Patient was seen and assessed at bedside 855 AM. She is alert, awake, oriented. She is appropriate. She denies headache, blurred vision, nausea, vomiting, current abdominal pain, vaginal bleeding or discharge, no constipation , nausea, vomiting or diarrhea. Patient states that she is ready to go to a long term since she is homeless and has to has to go. - Exam Vitals: Temp Pulse Resp BP Pulse Ox 98.3 F 61 17 119/60 99 03/01/18 11:31 03/01/18 11:31 03/01/18 11:31 03/01/18 11:31 03/01/18 11:31 Exam: Patient appears disheveled with obvious dirt under her fingernails and on skin. General: Pt resting quietly on bed, no distress. Skin: pwd, no rashes, lesions, redness Neurological: Pt is alert and awake, oriented x 3, Speech is clear, PERRLA, EOMI , no nystagmus, no pronator drift. strength equal x 4 extremities HEENT: mucous mumbranes moist, no conjuctival pallor Neck: supple, no tracheal deviation, no lymphadenopathy, tenderness, no thyromegaly Heart: S1S2 heard without gallops, clicks, murmurs, no bradycardia or tachycardia, pt has no peripheral edema, pedal and radial pulses palpable bilaterally. Lungs: clear throughout without wheezing, rales, or ronchi, respirations are unlabored Abdomen: soft and non tender with bowel sound present, no hepatomegaly. Psych: Normal affect with good eye contact - Assessment and Plan (1) Abdominal pain Current Visit: Yes Status: Acute Assessment and Plan: Patient denies chronic abdominal pain and states that she has had abdominal pain since yesterday. The abdomen is flat, nontender. She denies nausea, vomiting, or diarrhea. Bowel sounds are present throughout. There are no palpable masses. There are no signs of injury. Urine is negative for signs of infection. Continue to monitor patient labs and vital signs. Abdomen/Pelvis CT 02/28/18 17:18 IMPRESSION: No acute or focal findings are seen to the abdomen or pelvis to explain the patient's symptoms. Punctate nonobstructing stone to the mid region of the left kidney. Stable fibroid uterus. D/ / 02/28/2018 19:05:54 Dm Vizcaino MD / ashley Interpreting Provider: Dm Vizcaino MD (2) Generalized pain Current Visit: Yes Status: Acute Assessment and Plan: Patient denies today. She describes needlelike, pinpricks all over her body. Urine drug strenuous negative. She denies any recent falls or injuries. Patient is currently homeless, living in a tent in the [facility] for several weeks, sleeping on the ground could be contributing to her pain. (3) Homeless Current Visit: Yes Status: Acute Assessment and Plan: Patient was recently evicted from her home. is in another city in a long term. Patient admits that she currently lives in a tent in the [facility]. financial services education consultant is attempting ECF placement. (4) Weakness Current Visit: Yes Status: Acute Assessment and Plan: Patient reports chronic weakness, worse over the last month. Patient does not appear to have any focal deficits and her grasps and muscle strength is strong and equal bilaterally. Continue PT/OT during admission. Encourage patient opted bedside with assistance. (5) DVT prophylaxis Current Visit: Yes Status: Acute Assessment and Plan: SCDs. (6) Tobacco abuse Current Visit: Yes Status: Resolved Assessment and Plan: Patient admits to smoking one half pack of cigarettes per day. Again today, she has declined a nicotine patch. - Time Spent with Patient Total time spent is greater than 50% in coordination of care (as documented) at patient's floor/unit and/or counseling patient: less than 15 minutes Plan of Care Discussed with: patient Internal Medicine: Result - Labs CBC & Chem 7: 03/01/18 03:22 03/01/18 03:22 Labs: Short CBC 03/01/18 Range/Units 03:22 WBC 4.6 (4.3-11.1) K/mcL Hgb 13.1 (11.5-15.4) g/dL Hct 39.1 (35.3-44.9) % Plt Count 250 (140-400) K/mcL BMP 03/01/18 03:22 Sodium 141 Potassium 3.7 Chloride 110 H Carbon Dioxide 23 BUN 15 Creatinine 0.84 Glucose 108 H Calcium 8.9 Consult Discharge Plan - Plan Referrals: NONE,PCP [Primary Care Provider] - (1) Abdominal pain Qualifiers: Abdominal location: generalized Qualified Code(s): R10.84 - Generalized abdominal pain
--- NOTE | 2018-03-01 17:55 | Electrocardiograph Report ---
[address] [place] [address] Test Date: 2018-02-28 Pat Name: Trina Alas Department: Room: 3B14 Gender: F Workers Compensation Claims Analyst: : 1945 Requested By: Sal Allison Order Number: [id number] Reading MD: Kenyatta Peterson Measurements Intervals [place] Rate: 53 P: 74 [place]: 156 QRS: 80 QRSD: 83 T: 76 QT: 450 QTc: 423 Interpretive Statements Sinus rhythm Probable anteroseptal infarct old Electronically Signed On 03-01-2018 17:53:55 EDT by Kenyatta Peterson
[2018-03-01] MEDS ORDERED: Acetaminophen 325 MG TABLET PO PRN (21:24)
[2018-03-02] MEDS: cefTRIAXone 1,000 MG in Water for inj. (sterile) 20 ML 10 ML IVP SCH (01:24)
--- NOTE | 2018-03-02 07:41 | Physician Discharge Referral ---
ExtendedCare Referral Info Provider in Charge after Transfer: PCP Institutional Level of Care: Intermediate - Diagnosis (1) Abdominal pain Priority: Primary Status: Acute (2) Generalized pain Priority: Secondary Status: Acute (3) Homeless Priority: Secondary Status: Acute (4) Weakness Priority: Secondary Status: Acute (5) DVT prophylaxis Priority: Secondary Status: Acute (6) Tobacco abuse Priority: Secondary Status: Resolved Expected Duration of Placement: 30 days Prognosis: Good Aware of Diagnosis: Patient Aware of Prognosis: Patient - Transfer Medications Home Medications: No Known Home Drugs 02/28/18 [History] Allergies/Adverse Reactions: 3 Allergy/AdvReac Type Severity Reaction Status Date / Time Penicillins Allergy See Verified 02/28/18 17:19 Comments - Respiratory Orders Smoking Cessation: Smoking cessation has been advised. For more information, call the [employer] Tobacco Quit Line at 1-725-JYTCNOW. - Lab Orders Lab Orders: 2 Step Mantoux Test per State regulation, CBC, U/A, Malvin 17, CXR yearly - Ancillary Orders May consult with Dentist, Revenue Enforcement Collection Agent, Front End Web Designer PRN - Advance Directives Code Status: Full Code - Mobility Orders Ambulate - Rehabiliation Orders Rehab Potential: Good Rehab Orders: ROM Exercises, Evaluation for Physical Therapy, Evaluation for Occupational Therapy - Treatments Skin tear care topically daily PRN per policy, May check for fecal impaction rectally daily PRN, Fleet enema rectally every other day PRN cleansing purposes - Diet Orders Regular CERTIFICATION: I certify that the transfer of the above named patient to an Extended Care Facility is necessary for the continuing treatment of the diagnosis listed. The above information is true and accurate reflection of patient's current condition. Confidential - Redisclosure prohibited without a patient's written consent.
--- NOTE | 2018-03-02 16:08 | Internal Med Progress Note ---
Hospitalist Progress Note - Encounter Date of Encounter: 03/02/18 Time of Encounter: 09:35 - Subjective Interval History: Patient was seen and assessed at bedside 0935 AM. She is alert, awake, oriented. She is appropriate. She denies headache, blurred vision, nausea, vomiting, current abdominal pain, vaginal bleeding or discharge, no constipation , nausea, vomiting or diarrhea. Pt denies abdominal pain or urinary symptoms. - Exam Vitals: Temp Pulse Resp BP Pulse Ox 97.7 F 63 17 127/72 99 03/02/18 11:46 03/02/18 11:46 03/02/18 11:46 03/02/18 11:46 03/02/18 11:46 Exam: Patient appears disheveled with obvious dirt under her fingernails and on skin. General: Pt resting quietly on bed, no distress. Skin: pwd, no rashes, lesions, redness Neurological: Pt is alert and awake, oriented x 3, Speech is clear, PERRLA, EOMI , no nystagmus, no pronator drift. strength equal x 4 extremities HEENT: mucous mumbranes moist, no conjuctival pallor Neck: supple, no tracheal deviation, no lymphadenopathy, tenderness, no thyromegaly Heart: S1S2 heard without gallops, clicks, murmurs, no bradycardia or tachycardia, pt has no peripheral edema, pedal and radial pulses palpable bilaterally. Lungs: clear throughout without wheezing, rales, or ronchi, respirations are unlabored Abdomen: soft and non tender with bowel sound present, no hepatomegaly. Psych: Normal affect with good eye contact - Assessment and Plan (1) Abdominal pain Current Visit: Yes Status: Acute Assessment and Plan: Patient reports improved, intermittent low abdominal pain. The abdomen is flat , nontender. She denies nausea, vomiting, or diarrhea. Bowel sounds are present throughout. There are no palpable masses. There are no signs of injury. Urine is negative for signs of infection. Today, patient reports that she is bowel movement. Dulcolax has been given. Continue to monitor patient labs and vital signs. Abdomen/Pelvis CT 02/28/18 17:18 IMPRESSION: No acute or focal findings are seen to the abdomen or pelvis to explain the patient's symptoms. Punctate nonobstructing stone to the mid region of the left kidney. Stable fibroid uterus. D/ / 02/28/2018 19:05:54 Dm Vizcaino MD / eartayler Interpreting Provider: Dm Vizcaino MD (2) Generalized pain Current Visit: Yes Status: Acute Assessment and Plan: Patient denies today. She describes needlelike, pinpricks all over her body. Urine drug screen negative. She denies any recent falls or injuries. Patient is currently homeless, living in a tent in the [facility] for several weeks, sleeping on the ground could be contributing to her pain. 03/02- Pt states that she is feeling better today and is moving better than she did on admission. (3) Homeless Current Visit: Yes Status: Acute Assessment and Plan: Patient was recently evicted from her home. is in another city in a snf. Patient admits that she currently lives in a tent in the [facility]. We are waiting on approval for admission to [facility], likely tomorrow. (4) Weakness Current Visit: Yes Status: Acute Assessment and Plan: Patient reports chronic weakness, worse over the last month. Patient does not appear to have any focal deficits and her grasps and muscle strength is strong and equal bilaterally. Continue PT/OT during admission. Encourage patient out of bed with assistance. 03/02- Pt states that she is participating in PT and is feeling better. PT will be discharged to [facility] for rehab tomorrow. (5) DVT prophylaxis Current Visit: Yes Status: Acute Assessment and Plan: SCDs. (6) Tobacco abuse Current Visit: Yes Status: Resolved Assessment and Plan: Patient admits to smoking one half pack of cigarettes per day. Again today, she has declined a nicotine patch. - Time Spent with Patient Total time spent is greater than 50% in coordination of care (as documented) at patient's floor/unit and/or counseling patient: less than 15 minutes Internal Medicine: Result - Labs CBC & Chem 7: 03/01/18 03:22 03/01/18 03:22 - VTE Documentation of Mechanical Device: Intermittent pneumatic compression device Consult Discharge Plan - Plan Referrals: NONE,PCP [Primary Care Provider] - (1) Abdominal pain Qualifiers: Abdominal location: generalized Qualified Code(s): R10.84 - Generalized abdominal pain
[2018-03-03] MEDS: cefTRIAXone 1,000 MG in Water for inj. (sterile) 20 ML 10 ML IVP SCH (01:07)
[2018-03-03 11:34] VITALS: BP 121/65
--- NOTE | 2018-03-03 12:40 | Discharge Summary ---
Date of Encounter: 03/03/18 Time of Encounter: 10:00 - Discharge Diagnosis (1) Abdominal pain Priority: Secondary Status: Resolved Assessment and Plan: Pt denies abdominal pain, she reports that she is eating and drinking well. Denies urinary s/s and denies nausea, vomiting, and diarrhea. Qualifiers: Abdominal location: generalized Qualified Code(s): R10.84 - Generalized abdominal pain (2) Generalized pain Priority: Secondary Status: Acute Assessment and Plan: Patient denies today. Pt is feeling better and is able to get up and about easily, she ambulates with PT well. Continue Tylenol at [facility]. (3) Homeless Priority: Secondary Status: Resolved Assessment and Plan: Pt is going to be discharged to [facility] in [facility]. (4) Weakness Priority: Secondary Status: Acute Assessment and Plan: Patient reports chronic weakness, worse over the last month. Patient does not appear to have any focal deficits and her grasps and muscle strength is strong and equal bilaterally. Continue PT/OT during admission. She is doing well with PT/OT. 03/02- Pt states that she is participating in PT and is feeling better. PT will be discharged to [facility] for rehab tomorrow. 03/03- Pt will be discharged today. (5) DVT prophylaxis Priority: Secondary Status: Acute Assessment and Plan: SCDs. Pt is ambulatory (6) Tobacco abuse Priority: Secondary Status: Resolved Assessment and Plan: Patient admits to smoking one half pack of cigarettes per day. Again today, she has declined a nicotine patch. States that she is doing well and will not be able to smoke and will be able to quit easily. Hospital course: Please see assessment and plan Discharge discussed with: patient, nurse - Time Spent with Patient Total time spent providing and/or coordinating discharge services: Less than 30 minutes - Discharge Medications Home Medications: No Known Home Drugs 02/28/18 [History] Allergies/Adverse Reactions: 3 Allergy/AdvReac Type Severity Reaction Status Date / Time Penicillins Allergy See Verified 02/28/18 17:19 Comments Date of admission: 02/28/18 21:51 Primary care physician: PCP NONE Consults: 02/28/18 23:[address] Administrator [CONS] Routine Reason for SW Consult: Patient homeless, on disability, living in a tent in the [facility]. 03/01/18 00:39 Consult to Occupational Therapy [CONS] Routine Comment: Evaluate, develop and implement POC Reason for Consult: Patient has weakness all over, having near falls. Does patient have active BEDREST order?: No Is patient medically & hemodynamically stable?: Yes Consult to Physical Therapy [CONS] Routine Comment: Evaluate, develop and implement POC Reason for Consult: Patient weak with walking, sometimes feels like legs will come out from underneath her. Does patient have active BEDREST order?: No Is patient medically & hemodynamically stable?: Yes Discharging clinician: Gifty Kiran Anticipated date of discharge: 03/03/18 - Constitutional Vitals: Temp Pulse Resp BP Pulse Ox 97.7 F 63 17 121/65 98 03/03/18 11:33 03/03/18 11:33 03/03/18 11:33 03/03/18 11:33 03/03/18 11:33 General appearance: Present: cooperative, disheveled, A&O X 3, pleasant, no acute distress, answers questions appropriately - Head Head exam: Present: atraumatic, normal inspection, normocephalic - Eye Eye exam: Present: normal appearance, conjuntiva pink, sclera anicteric - Neck Neck exam general surgery: Present: supple, trachea midline. Absent: lymphadenopathy, tenderness - Respiratory Respiratory exam: Present: CTAB. Absent: accessory muscle use, chest wall tenderness, rales, respiratory distress, rhonchi, wheezes - Cardiovascular Cardiovascular exam: Present: RRR, +S1, +S2. Absent: diastolic murmur, gallop, rubs, systolic murmur - GI/Abdominal GI/Abdominal exam: Present: normal bowel sounds, soft. Absent: distended, hepatomegaly, tenderness - Extremities Exam Extremities exam: Present: normal capillary refill, normal inspection, warm, radial pulses palpable and symmetrical. Absent: calf tenderness, cyanotic, pedal edema, tenderness - Neurological Exam Neurological exam: Present: alert, oriented X3, no focal deficits. Absent: altered, facial droop, speech deficit - Skin Skin exam: Present: dry, intact, normal color, warm. Absent: rash - Patient Status Disposition: Transfer SNF Condition: Good Functional capacity at discharge: independent ambulation Overall status at discharge: patient is progressing back to baseline - Discharge Instructions Follow Up With: NONE,PCP [Primary Care Provider] - - Diet and Activity Activity: increase activity as tolerated Diet: advance to your usual diet - VTE Documentation of Mechanical Device: Intermittent pneumatic compression device
== END 2018-03-03 14:40 ==
LOC: 3BNU 16:54 → EMEROOARM 16:54 → 3BNU 22:17
PROVIDERS: ADMIT Internal Medicine; ATTEND Internal Medicine